=== PATIENT | female | born 2005 | race Caucasian/White ===

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

== ENCOUNTER 2023-10-12 12:56 | Emergency (ER) | payer SELFPAY | END 2023-10-12 14:20 | disposition home or self-care (01) | LOC: MADERS 12:56 | DX: J02.9 Acute pharyngitis, unspecified (principal); F17.290 Nicotine dependence, other tobacco product, uncomplicated | CPT/HCPCS: 99282 ==